=== PATIENT | female | born 1935 | race Caucasian/White ===

== ENCOUNTER 2016-07-06 09:29 | Observation (INO) | payer MEDICARE, OTHER ==
[~2016-07-06] VITALS: Ht 165.1 cm; Wt 73.0 kg
[~2016-07-06 09:29] MED LIST: ASPIRIN325 MG PO; LEVAQUIN500 MG PO; VASOTEC5 MG PO; ZOCOR20 MG PO
[2016-07-06 10:31] LABS: BASO % 0.2 % (0.1-1.2); EOS # 0.3 10_X3_uL (0.0-0.4); EOS % 3.5 % (0.7-5.8); GRAN # 8.2 10_X3_uL (1.6-6.1); GRAN % 83.6 % (34.0-71.1); HEMATOCRIT 49.7 % (34-45); HEMOGLOBIN 17.5 g/dL (11.2-15.7); LYMPH # 0.8 10_X3_uL (1.2-3.7); LYMPH % 7.6 % (19.3-51.7); MEAN CORPUSCULAR HEMOGLOBIN 30.7 pg (27.0-33.0); MEAN CORPUSCULAR HGB CONC 35.2 g/dL (32.0-36.0); MEAN CORPUSCULAR VOLUME 87.2 fL (79-95); MONO # 0.5 10_X3_uL (0.2-0.9); MONO % 5.1 % (4.7-12.5); PLATELET COUNT 70 x10_3/uL (182-369); RED CELL DISTRIBUTION WIDTH 13.8 % (11.7-14.4); WHITE BLOOD COUNT 9.9 x10_3/uL (4.0-10.0)
[2016-07-06 10:47] LABS: ALBUMIN 4.6 gm/dL (3.4-5.0); ALKALINE PHOSPHATASE 85 U/L (50-136); BILIRUBIN,TOTAL 0.51 mg/dL (0.0-1.0); BLOOD UREA NITROGEN 33 mg/dL (7-18); CALCIUM 9.9 mg/dL (8.7-10.7); CARBON DIOXIDE 23 mmol/L (21-32); CREATININE 1.6 mg/dL (0.6-1.3); GLUCOSE,RANDOM 173 mg/dL (70-99); LIPASE 72 U/L (6.75-60.75); POTASSIUM 4.8 mmol/L (3.5-5.1); SODIUM 137 mmol/L (136-145); TOTAL PROTEIN 8.7 gm/dL (6.4-8.2)
[2016-07-07 01:33] LABS: URINE BILIRUBIN NEGATIVE (NEGATIVE); URINE BLOOD 1+ (NEGATIVE); URINE GLUCOSE (UA) NORMAL (NORMAL); URINE KETONE NEGATIVE (NEGATIVE); URINE LEUKOCYTE ESTERASE 2+ (NEGATIVE); URINE NITRATE NEGATIVE (NEGATIVE); URINE PROTEIN 1+ (NEGATIVE); UROBILINOGEN NORMAL mg/dL (<1.0)
[2016-07-07 01:34] LABS: URINE BACTERIA 2+ (NONE SEEN); URINE SQUAMOUS EPITHELIAL CELL >20 /[HPF] (NONE SEEN)
[2016-07-07 08:28] LABS: URINE BILIRUBIN NEGATIVE (NEGATIVE); URINE BLOOD TRACE (NEGATIVE); URINE GLUCOSE (UA) NORMAL (NORMAL); URINE KETONE NEGATIVE (NEGATIVE); URINE LEUKOCYTE ESTERASE TRACE (NEGATIVE); URINE NITRATE NEGATIVE (NEGATIVE); URINE PROTEIN TRACE (NEGATIVE); UROBILINOGEN NORMAL mg/dL (<1.0)
[2016-07-07 08:42] LABS: URINE BACTERIA TRACE (NONE SEEN); URINE RBC 0-5 /[HPF] (0-2); URINE SQUAMOUS EPITHELIAL CELL 0-10 /[HPF] (NONE SEEN); URINE WBC 0-5 /[HPF] (0-5)
[2016-07-09 06:58] LABS: RESULT ALT (()); RESULT AST (())
== END 2016-07-07 16:50 | disposition home or self-care (01) ==
LOC: ER 09:29 → MS 14:28
PROVIDERS: General Practice; ADMIT Family Medicine
DX: E86.0 Dehydration (principal); K52.9 Noninfective gastroenteritis and colitis, unspecified; R11.2 Nausea with vomiting, unspecified; I95.9 Hypotension, unspecified; N17.9 Acute kidney failure, unspecified; I10 Essential (primary) hypertension; E78.5 Hyperlipidemia, unspecified; E03.9 Hypothyroidism, unspecified; E53.8 Deficiency of other specified B group vitamins; E55.9 Vitamin D deficiency, unspecified; R42 Dizziness and giddiness; I25.2 Old myocardial infarction; Z93.3 Colostomy status; Z95.5 Presence of coronary angioplasty implant and graft; Z79.899 Other long term (current) drug therapy; Z88.5 Allergy status to narcotic agent; Z90.49 Acquired absence of other specified parts of digestive tract; Z85.41 Personal history of malignant neoplasm of cervix uteri
CPT/HCPCS: 36415; 80053; 81001; 83690; 85025; 96361; 96374; 99070; 99284; 99284-25; G0378